=== PATIENT | female | born 1950 | race Caucasian/White ===

== ENCOUNTER 2022-11-17 21:08 | Emergency (ER) | payer OTHER ==
[~2022-11-17] VITALS: Ht 147.3 cm; Wt 95.7 kg
[2022-11-17 21:10] VITALS: BP_SYST 150; PULSE 75; RESP 18; TEMP 99.8; O2SAT 98
[2022-11-17 23:19] LABS: BASOPHILS % (AUTO) 0.6 % (0.0-2.0); EOSINOPHILS # (AUTO) 0.1 K/uL (0.0-0.4); EOSINOPHILS % (AUTO) 1.6 % (0.0-4.0); HEMOGLOBIN 12.9 g/dL (12.0-16.0); LYMPHOCYTES # (AUTO) 1.5 K/uL (1.0-5.5); MEAN CORPUSCULAR HEMOGLOBIN 32 pg (27-31); MEAN CORPUSCULAR HGB CONC 33 % (32-36); MEAN CORPUSCULAR VOLUME 98 fL (79.0-98.0); MONOCYTES # (AUTO) 0.5 K/uL (0.0-1.0); MONOCYTES % (AUTO) 8.3 % (1.7-9.3); NEUTROPHILS # (AUTO) 4.2 K/uL (1.8-7.7); NEUTROPHILS % (AUTO) 65.5 % (40.0-70.0); PLATELET COUNT (AUTO) 124 K/uL (130-430); RED BLOOD CELL COUNT(AUTO) 3.98 MIL/uL (4.2-6.2); RED CELL DISTRIBUTION WIDTH 16.1 % (9.0-15.0); WHITE BLOOD COUNT (AUTO) 6.4 K/uL (4.8-10.8)
[2022-11-17 23:32] LABS: ANION GAP 5 (5-15); CALCIUM 7.9 mg/dL (8.4-11.0); CHLORIDE 110 mmol/L (98-107); CREATININE 0.67 mg/dL (0.55-1.30); GLUCOSE 116 mg/dL (74-106); UREA NITROGEN, BLOOD 6 mg/dL (8-21)
[2022-11-17 23:45] LABS: ALANINE AMINOTRANSFERASE 23 U/L (12-78); ALBUMIN 2.4 g/dL (3.4-4.8); ASPARTATE AMINOTRANSFERASE 45 U/L (10-37); THYROID STIMULATING HORMONE 2.46 uIu/mL (0.34-4.82); TOTAL BILIRUBIN 1.5 mg/dL (0.0-1.0)
[2022-11-18] MEDS ORDERED: AMOX500C2 PO (00:08)
[2022-11-18 00:32] VITALS: BP_SYST 150; PULSE 75; RESP 18; TEMP 99.8; O2SAT 98
== END 2022-11-18 00:32 | disposition home or self-care (01) ==
LOC: SED 21:08
DX: S02.31XA Fracture of orbital floor, right side, initial encounter for closed fracture (principal); S02.40CA Maxillary fracture, right side, initial encounter for closed fracture; S02.40BA Malar fracture, left side, initial encounter for closed fracture; Z79.899 Other long term (current) drug therapy; W01.0XXA Fall on same level from slipping, tripping and stumbling without subsequent striking against object, initial encounter; Y93.89 Activity, other specified; Y92.89 Other specified places as the place of occurrence of the external cause; Y99.8 Other external cause status
CPT/HCPCS: 36415; 70450-TC; 70486-TC; 76376; 80053; 84443; 85025; 99284

== ENCOUNTER 2023-07-18 16:54 | Inpatient (IN) | payer OTHER ==
[~2023-07-18] VITALS: Ht 149.9 cm; Wt 103.9 kg
[~2023-07-18 16:54] MED LIST: AMOX500C2 PO
[2023-07-18 16:55] VITALS: BP_SYST 117; PULSE 73; RESP 18; TEMP 97.7; O2SAT 95
[2023-07-18 17:39] LABS: BILIRUBIN,URINE 1+ (NEGATIVE); BLOOD, URINE NEGATIVE (NEGATIVE); CLARITY/URINE SL CLOUDY (CLEAR); COLOR,URINE YELLOW (YELLOW); GLUCOSE,URINE NEGATIVE (NEGATIVE); KETONES,URINE TRACE (NEGATIVE); LEUKOCYTE ESTERASE ,URINE TRACE (NEGATIVE); NITRITE, URINE NEGATIVE (NEGATIVE); PH,URINE 6.5 (5.0-8.0); PROTEIN URINE NEGATIVE (NEGATIVE)
[2023-07-18 17:40] LABS: BASOPHILS % (AUTO) 0.7 % (0.0-2.0); EOSINOPHILS # (AUTO) 0.5 K/uL (0.0-0.4); EOSINOPHILS % (AUTO) 10.5 % (0.0-4.0); HEMATOCRIT 35.7 % (36-48); LYMPHOCYTES # (AUTO) 1.4 K/uL (1.0-5.5); LYMPHOCYTES % (AUTO) 27.8 % (20.5-51.5); MEAN CORPUSCULAR HEMOGLOBIN 33 pg (27-31); MEAN CORPUSCULAR HGB CONC 34 % (32-36); MEAN CORPUSCULAR VOLUME 98 fL (79.0-98.0); MONOCYTES # (AUTO) 0.6 K/uL (0.0-1.0); MONOCYTES % (AUTO) 12.1 % (1.7-9.3); NEUTROPHILS # (AUTO) 2.5 K/uL (1.8-7.7); NEUTROPHILS % (AUTO) 48.9 % (40.0-70.0); PLATELET COUNT (AUTO) 129 K/uL (130-430); RED BLOOD CELL COUNT(AUTO) 3.66 MIL/uL (4.2-6.2); RED CELL DISTRIBUTION WIDTH 16.3 % (9.0-15.0); WHITE BLOOD COUNT (AUTO) 5.2 K/uL (4.8-10.8)
[2023-07-18 17:46] LABS: UROBILINOGEN,URINE >=8 (0.2-1.0)
[2023-07-18 17:51] LABS: INR 1.3 (0.8-1.2); PROTHROMBIN TIME 13.3 SECS (9.5-12.5)
[2023-07-18 17:52] LABS: BARBITURATE, URINE NEGATIVE (NEG <=200); BENZODIAZEPINE, URINE NEGATIVE (NEG <=150); CANNABINOID, URINE NEGATIVE (NEG <=50); COCAINE, URINE NEGATIVE (NEG <=150); METHAMPHETAMINES SCREEN,URINE NEGATIVE (NEG <=500); OPIATE, URINE NEGATIVE (NEG <=100); PHENCYCLIDINE SCREEN,URINE NEGATIVE (NEG <=25); URINE AMPHETAMINE NEGATIVE (NEG <=500); URINE METHADONE NEGATIVE (NEG <=200); URINE OXYCODONE SCREEN NEGATIVE (NEG <=100)
[2023-07-18 17:52] LABS: ANION GAP 5 (5-15); CALCIUM 8.7 mg/dL (8.4-11.0); CARBON DIOXIDE 27 mmol/L (23-29); CHLORIDE 111 mmol/L (98-107); GLUCOSE 104 mg/dL (74-106); POTASSIUM 4.3 mmol/L (3.5-5.1); SODIUM SERUM 143 mmol/L (136-145); UREA NITROGEN, BLOOD 12 mg/dL (8-21)
[2023-07-18 17:53] LABS: UR TRICYCLIC ANTIDEPRESSANTS NEGATIVE (NEG <=300)
[2023-07-18 18:00] LABS: ALANINE AMINOTRANSFERASE 27 U/L (12-78); ALBUMIN 2.2 g/dL (3.4-4.8); ASPARTATE AMINOTRANSFERASE 76 U/L (10-37); BILIRUBIN,DIRECT 0.5 mg/dL (0.0-0.3); TOTAL BILIRUBIN 1.5 mg/dL (0.0-1.0); TOTAL PROTEIN, SERUM 6.7 g/dL (6.4-8.3)
[2023-07-18 18:09] LABS: BACTERIA,URINE MODERATE /HPF (None Seen); MUCUS,URINE 1+ /LPF (None Seen); RBC,URINE 0-3 /HPF (0-3)
[2023-07-18 18:24] LABS: ALCOHOL, BLOOD < 3 mg/dL (<10)
[2023-07-18] MEDS: cefTRIAXone 1 GM IVPB PREMIX 50 ML IV ONE (19:19)
[2023-07-18] MEDS: NACL 0.9% 1,000 ML IV ONE (19:20)
[2023-07-18] MEDS ORDERED: OXYB10TA30 PO (19:26)
[2023-07-18] MEDS ORDERED: LOSA25TA18 PO (19:26)
[2023-07-18 20:27] LABS: ANION GAP 4 (5-15); CALCIUM 8.6 mg/dL (8.4-11.0); CARBON DIOXIDE 30 mmol/L (23-29); CHLORIDE 111 mmol/L (98-107); CREATININE 0.64 mg/dL (0.55-1.30); GLUCOSE 95 mg/dL (74-106); POTASSIUM 4.2 mmol/L (3.5-5.1); SODIUM SERUM 145 mmol/L (136-145); UREA NITROGEN, BLOOD 12 mg/dL (8-21)
[2023-07-18] MEDS: NACL 0.9% 1,000 ML IV SCH (20:36)
[2023-07-18 21:00] VITALS: BP_SYST 104; BP_SYST 112; BP_SYST 115; PULSE 73; PULSE 86; RESP 20; RESP 23; TEMP 97.5; TEMP 97.8; TEMP 97.9; O2SAT 95; O2SAT 97
[2023-07-18] MEDS ORDERED: MAGNESIUM SULFATE 50 ML IV PRN (23:00)
[2023-07-18] MEDS ORDERED: ONDANSETRON HCL 4 MG/2 ML VIAL IVP PRN (23:00)
[2023-07-18] MEDS ORDERED: NALOXONE HCL 2 MG/2 ML SYR IVP PRN (23:00)
[2023-07-18] MEDS ORDERED: LORazepam 2 MG/ML VIAL IVP PRN (23:00)
[2023-07-18] MEDS ORDERED: MORPHINE 2 MG/ML INJ. SYRINGE IVP PRN (23:00)
[2023-07-18] MEDS ORDERED: MORPHINE 4 MG INJ. 4 MG/ML VIAL IVP PRN (23:00)
[2023-07-18 23:56] LABS: THYROID STIMULATING HORMONE 4.86 uIu/mL (0.34-4.82)
[2023-07-19] VITALS (8 sets, daily range): BP systolic 110–136; PULSE 68–86; RESP 16–20; TEMP 97.1–98.4; O2SAT 96–100
[2023-07-19 00:53] LABS: BARBITURATE, URINE NEGATIVE (NEG <=200); BENZODIAZEPINE, URINE NEGATIVE (NEG <=150); CANNABINOID, URINE NEGATIVE (NEG <=50); COCAINE, URINE NEGATIVE (NEG <=150); METHAMPHETAMINES SCREEN,URINE NEGATIVE (NEG <=500); OPIATE, URINE NEGATIVE (NEG <=100); PHENCYCLIDINE SCREEN,URINE NEGATIVE (NEG <=25); UR TRICYCLIC ANTIDEPRESSANTS NEGATIVE (NEG <=300); URINE AMPHETAMINE NEGATIVE (NEG <=500); URINE METHADONE NEGATIVE (NEG <=200); URINE OXYCODONE SCREEN NEGATIVE (NEG <=100)
[2023-07-19 05:00] LABS: BASOPHILS % (AUTO) 0.9 % (0.0-2.0); EOSINOPHILS # (AUTO) 0.6 K/uL (0.0-0.4); EOSINOPHILS % (AUTO) 11.4 % (0.0-4.0); HEMOGLOBIN 12.1 g/dL (12.0-16.0); LYMPHOCYTES # (AUTO) 1.9 K/uL (1.0-5.5); LYMPHOCYTES % (AUTO) 37.6 % (20.5-51.5); MEAN CORPUSCULAR HEMOGLOBIN 33 pg (27-31); MEAN CORPUSCULAR HGB CONC 34 % (32-36); MEAN CORPUSCULAR VOLUME 97 fL (79.0-98.0); MONOCYTES # (AUTO) 0.5 K/uL (0.0-1.0); MONOCYTES % (AUTO) 10.2 % (1.7-9.3); NEUTROPHILS % (AUTO) 39.9 % (40.0-70.0); PLATELET COUNT (AUTO) 99 K/uL (130-430); RED BLOOD CELL COUNT(AUTO) 3.71 MIL/uL (4.2-6.2); RED CELL DISTRIBUTION WIDTH 16.3 % (9.0-15.0); WHITE BLOOD COUNT (AUTO) 5.1 K/uL (4.8-10.8)
[2023-07-19 05:18] LABS: ALANINE AMINOTRANSFERASE 23 U/L (12-78); ANION GAP 6 (5-15); ASPARTATE AMINOTRANSFERASE 65 U/L (10-37); CALCIUM 8.5 mg/dL (8.4-11.0); CARBON DIOXIDE 26 mmol/L (23-29); CHLORIDE 113 mmol/L (98-107); CREATININE 0.57 mg/dL (0.55-1.30); GLUCOSE 69 mg/dL (74-106); PHOSPHORUS 3.6 mg/dL (2.7-4.5); POTASSIUM 3.9 mmol/L (3.5-5.1); SODIUM SERUM 145 mmol/L (136-145); TOTAL BILIRUBIN 1.7 mg/dL (0.0-1.0); TOTAL PROTEIN, SERUM 6.2 g/dL (6.4-8.3); UREA NITROGEN, BLOOD 10 mg/dL (8-21)
[2023-07-19] MEDS: oxyBUTYnin chloride 5 MG TABLET PO SCH (08:14)
[2023-07-19] MEDS: LOSARTAN POTASSIUM 25 MG TABLET PO SCH (08:14)
[2023-07-19] MEDS: cefTRIAXone 1 GM IVPB PREMIX 50 ML IV SCH (08:43)
[2023-07-19] MEDS ORDERED: cefTRIAXone 1 GM IVPB PREMIX 50 ML IV SCH (09:00)
[2023-07-19] MEDS ORDERED: OXYB15TA19 PO (09:32)
[2023-07-19] MEDS: ENOXAPARIN SODIUM 40 MG/0.4 ML SYRINGE SUBCUT SCH (13:25)
[2023-07-19 15:27] LABS: BASOPHILS # (AUTO) 0.1 K/uL (0.0-0.2); BASOPHILS % (AUTO) 1.2 % (0.0-2.0); EOSINOPHILS # (AUTO) 0.5 K/uL (0.0-0.4); EOSINOPHILS % (AUTO) 9.9 % (0.0-4.0); HEMATOCRIT 33.3 % (36-48); HEMOGLOBIN 11.2 g/dL (12.0-16.0); LYMPHOCYTES # (AUTO) 1.7 K/uL (1.0-5.5); LYMPHOCYTES % (AUTO) 32.5 % (20.5-51.5); MEAN CORPUSCULAR HEMOGLOBIN 33 pg (27-31); MEAN CORPUSCULAR HGB CONC 34 % (32-36); MEAN CORPUSCULAR VOLUME 98 fL (79.0-98.0); MONOCYTES # (AUTO) 0.4 K/uL (0.0-1.0); MONOCYTES % (AUTO) 8.2 % (1.7-9.3); NEUTROPHILS # (AUTO) 2.5 K/uL (1.8-7.7); NEUTROPHILS % (AUTO) 48.2 % (40.0-70.0); PLATELET COUNT (AUTO) 118 K/uL (130-430); RED CELL DISTRIBUTION WIDTH 16.3 % (9.0-15.0); WHITE BLOOD COUNT (AUTO) 5.2 K/uL (4.8-10.8)
[2023-07-19] MEDS: LACTULOSE 20 GM/30 ML UDC PO ONE (17:22)
[2023-07-20 00:24] VITALS: BP_SYST 144; PULSE 70; RESP 17; TEMP 97.4; O2SAT 97
[2023-07-20 04:00] VITALS: BP_SYST 130; PULSE 89; RESP 19; TEMP 97.7; O2SAT 98
[2023-07-20 08:00] VITALS: BP_SYST 119; PULSE 75; RESP 16; TEMP 98.7; O2SAT 98
[2023-07-20] MEDS: LACTULOSE 20 GM/30 ML UDC PO SCH (08:35)
[2023-07-20 09:21] LABS: EOSINOPHILS # (AUTO) 0.5 K/uL (0.0-0.4); EOSINOPHILS % (AUTO) 9.7 % (0.0-4.0); HEMATOCRIT 33.6 % (36-48); HEMOGLOBIN 11.3 g/dL (12.0-16.0); LYMPHOCYTES # (AUTO) 1.5 K/uL (1.0-5.5); LYMPHOCYTES % (AUTO) 31.5 % (20.5-51.5); MEAN CORPUSCULAR HEMOGLOBIN 33 pg (27-31); MEAN CORPUSCULAR HGB CONC 34 % (32-36); MEAN CORPUSCULAR VOLUME 98 fL (79.0-98.0); MONOCYTES # (AUTO) 0.4 K/uL (0.0-1.0); MONOCYTES % (AUTO) 9.3 % (1.7-9.3); NEUTROPHILS # (AUTO) 2.3 K/uL (1.8-7.7); NEUTROPHILS % (AUTO) 48.5 % (40.0-70.0); PLATELET COUNT (AUTO) 112 K/uL (130-430); RED BLOOD CELL COUNT(AUTO) 3.43 MIL/uL (4.2-6.2); RED CELL DISTRIBUTION WIDTH 16.3 % (9.0-15.0); WHITE BLOOD COUNT (AUTO) 4.7 K/uL (4.8-10.8)
[2023-07-20 09:40] LABS: ALANINE AMINOTRANSFERASE 22 U/L (12-78); ALBUMIN 1.8 g/dL (3.4-4.8); ANION GAP 6 (5-15); ASPARTATE AMINOTRANSFERASE 63 U/L (10-37); CALCIUM 7.9 mg/dL (8.4-11.0); CARBON DIOXIDE 24 mmol/L (23-29); CHLORIDE 112 mmol/L (98-107); CREATININE 0.68 mg/dL (0.55-1.30); GLUCOSE 177 mg/dL (74-106); PHOSPHORUS 3.1 mg/dL (2.7-4.5); POTASSIUM 3.4 mmol/L (3.5-5.1); SODIUM SERUM 142 mmol/L (136-145); TOTAL BILIRUBIN 1.5 mg/dL (0.0-1.0); TOTAL PROTEIN, SERUM 5.8 g/dL (6.4-8.3); UREA NITROGEN, BLOOD 8 mg/dL (8-21)
[2023-07-20 11:33] VITALS: BP_SYST 121; PULSE 73; RESP 18; TEMP 98.5; O2SAT 95
[2023-07-20] MEDS: POTASSIUM CHLORIDE 40 MEQ, LIDOCAINE JECT 2% PF 100 MG 50 MG in NS 250 ML IV PRN (11:36)
[2023-07-20] MEDS: oxyBUTYnin chloride 5 MG TABLET PO ONE (16:29)
[2023-07-20 16:51] VITALS: BP_SYST 136; PULSE 70; RESP 18; TEMP 98.8; O2SAT 98
[2023-07-20 19:35] VITALS: O2SAT 99
[2023-07-20] MEDS: oxyBUTYnin chloride 5 MG TABLET PO SCH (20:51)
[2023-07-20] MEDS: CIPROFLOXACIN LACT 400 MG/D5W 200 ML IV SCH (20:51)
[2023-07-21] VITALS (8 sets, daily range): BP systolic 114–150; PULSE 63–81; RESP 16–20; TEMP 96.3–99.6; O2SAT 92–98
[2023-07-21 06:41] LABS: BASOPHILS % (AUTO) 0.7 % (0.0-2.0); EOSINOPHILS # (AUTO) 0.4 K/uL (0.0-0.4); EOSINOPHILS % (AUTO) 7.6 % (0.0-4.0); HEMATOCRIT 34.9 % (36-48); HEMOGLOBIN 11.8 g/dL (12.0-16.0); LYMPHOCYTES # (AUTO) 1.5 K/uL (1.0-5.5); LYMPHOCYTES % (AUTO) 28.6 % (20.5-51.5); MEAN CORPUSCULAR HEMOGLOBIN 33 pg (27-31); MEAN CORPUSCULAR HGB CONC 34 % (32-36); MEAN CORPUSCULAR VOLUME 98 fL (79.0-98.0); MONOCYTES # (AUTO) 0.6 K/uL (0.0-1.0); MONOCYTES % (AUTO) 11.3 % (1.7-9.3); NEUTROPHILS # (AUTO) 2.8 K/uL (1.8-7.7); NEUTROPHILS % (AUTO) 51.8 % (40.0-70.0); PLATELET COUNT (AUTO) 113 K/uL (130-430); RED BLOOD CELL COUNT(AUTO) 3.58 MIL/uL (4.2-6.2); RED CELL DISTRIBUTION WIDTH 16.6 % (9.0-15.0); WHITE BLOOD COUNT (AUTO) 5.4 K/uL (4.8-10.8)
[2023-07-21 06:51] LABS: ALANINE AMINOTRANSFERASE 25 U/L (12-78); ALBUMIN 2.1 g/dL (3.4-4.8); ANION GAP 7 (5-15); ASPARTATE AMINOTRANSFERASE 64 U/L (10-37); CALCIUM 8.1 mg/dL (8.4-11.0); CARBON DIOXIDE 23 mmol/L (23-29); CHLORIDE 112 mmol/L (98-107); CREATININE 0.52 mg/dL (0.55-1.30); GLUCOSE 69 mg/dL (74-106); PHOSPHORUS 3.4 mg/dL (2.7-4.5); POTASSIUM 3.7 mmol/L (3.5-5.1); SODIUM SERUM 142 mmol/L (136-145); TOTAL BILIRUBIN 1.6 mg/dL (0.0-1.0); TOTAL PROTEIN, SERUM 6.3 g/dL (6.4-8.3); UREA NITROGEN, BLOOD 6 mg/dL (8-21)
[2023-07-21] MEDS ORDERED: OXYBUTYNIN CHLORIDE 15 MG PO SCH (09:00)
[2023-07-22] VITALS (7 sets, daily range): BP systolic 103–142; PULSE 67–80; RESP 16–20; TEMP 97.6–99; O2SAT 95–99
[2023-07-22 09:23] LABS: BASOPHILS % (AUTO) 0.4 % (0.0-2.0); EOSINOPHILS # (AUTO) 0.4 K/uL (0.0-0.4); EOSINOPHILS % (AUTO) 7.3 % (0.0-4.0); HEMATOCRIT 34.6 % (36-48); HEMOGLOBIN 11.7 g/dL (12.0-16.0); LYMPHOCYTES # (AUTO) 1.2 K/uL (1.0-5.5); LYMPHOCYTES % (AUTO) 22.9 % (20.5-51.5); MEAN CORPUSCULAR HEMOGLOBIN 33 pg (27-31); MEAN CORPUSCULAR HGB CONC 34 % (32-36); MEAN CORPUSCULAR VOLUME 98 fL (79.0-98.0); MONOCYTES # (AUTO) 0.7 K/uL (0.0-1.0); MONOCYTES % (AUTO) 13.5 % (1.7-9.3); NEUTROPHILS % (AUTO) 55.9 % (40.0-70.0); PLATELET COUNT (AUTO) 110 K/uL (130-430); RED BLOOD CELL COUNT(AUTO) 3.54 MIL/uL (4.2-6.2); RED CELL DISTRIBUTION WIDTH 16.3 % (9.0-15.0); WHITE BLOOD COUNT (AUTO) 5.4 K/uL (4.8-10.8)
[2023-07-22 09:41] LABS: ALANINE AMINOTRANSFERASE 22 U/L (12-78); ALBUMIN 1.9 g/dL (3.4-4.8); ANION GAP 6 (5-15); ASPARTATE AMINOTRANSFERASE 57 U/L (10-37); CARBON DIOXIDE 24 mmol/L (23-29); CHLORIDE 111 mmol/L (98-107); CREATININE 0.51 mg/dL (0.55-1.30); GLUCOSE 81 mg/dL (74-106); POTASSIUM 3.5 mmol/L (3.5-5.1); SODIUM SERUM 141 mmol/L (136-145); TOTAL BILIRUBIN 1.8 mg/dL (0.0-1.0); UREA NITROGEN, BLOOD 7 mg/dL (8-21)
[2023-07-23 00:06] VITALS: BP_SYST 120; PULSE 68; RESP 17; TEMP 97.9; O2SAT 96
[2023-07-23 06:07] LABS: EOSINOPHILS # (AUTO) 0.5 K/uL (0.0-0.4); EOSINOPHILS % (AUTO) 10.7 % (0.0-4.0); HEMATOCRIT 35.6 % (36-48); LYMPHOCYTES # (AUTO) 1.5 K/uL (1.0-5.5); MEAN CORPUSCULAR HEMOGLOBIN 33 pg (27-31); MEAN CORPUSCULAR HGB CONC 34 % (32-36); MEAN CORPUSCULAR VOLUME 98 fL (79.0-98.0); MONOCYTES # (AUTO) 0.6 K/uL (0.0-1.0); MONOCYTES % (AUTO) 13.1 % (1.7-9.3); NEUTROPHILS # (AUTO) 2.2 K/uL (1.8-7.7); NEUTROPHILS % (AUTO) 44.2 % (40.0-70.0); PLATELET COUNT (AUTO) 105 K/uL (130-430); RED BLOOD CELL COUNT(AUTO) 3.64 MIL/uL (4.2-6.2); RED CELL DISTRIBUTION WIDTH 16.4 % (9.0-15.0); WHITE BLOOD COUNT (AUTO) 4.9 K/uL (4.8-10.8)
[2023-07-23 06:33] LABS: ALANINE AMINOTRANSFERASE 22 U/L (12-78); ANION GAP 5 (5-15); ASPARTATE AMINOTRANSFERASE 54 U/L (10-37); CALCIUM 8.1 mg/dL (8.4-11.0); CARBON DIOXIDE 24 mmol/L (23-29); CHLORIDE 109 mmol/L (98-107); CREATININE 0.58 mg/dL (0.55-1.30); GLUCOSE 64 mg/dL (74-106); PHOSPHORUS 3.1 mg/dL (2.7-4.5); POTASSIUM 3.3 mmol/L (3.5-5.1); SODIUM SERUM 138 mmol/L (136-145); TOTAL BILIRUBIN 1.9 mg/dL (0.0-1.0); TOTAL PROTEIN, SERUM 6.2 g/dL (6.4-8.3); UREA NITROGEN, BLOOD 8 mg/dL (8-21)
[2023-07-23 08:00] VITALS: BP_SYST 122; PULSE 77; RESP 18; TEMP 97.8; O2SAT 97
[2023-07-23] MEDS: RIFAXIMIN 550 MG TABLET PO SCH (09:24)
[2023-07-23 11:14] VITALS: BP_SYST 107; PULSE 73; RESP 16; TEMP 97.8; O2SAT 96
[2023-07-23] MEDS ORDERED: RIFA550T5 PO (11:42)
[2023-07-23] MEDS ORDERED: Lactulose PO (11:42)
[2023-07-23] MEDS ORDERED: [UNRECOGNIZED DRUG - CODE] IV (11:42)
[2023-07-23 15:02] VITALS: BP_SYST 122; PULSE 67; RESP 16; TEMP 98.5; O2SAT 96
[2023-07-23 19:49] VITALS: BP_SYST 119; PULSE 72; RESP 18; TEMP 98.4; O2SAT 96
[2023-07-23 19:50] VITALS: BP_SYST 119; PULSE 72; RESP 18; TEMP 98.4; O2SAT 96
== END 2023-07-23 20:15 | DRG 441 ==
LOC: SED 16:54 → STU 19:21 → SMU 07-21 12:37
DX: K76.82 Hepatic encephalopathy (principal); E43 Unspecified severe protein-calorie malnutrition; G93.41 Metabolic encephalopathy; N39.0 Urinary tract infection, site not specified; Z68.42 Body mass index [BMI] 45.0-49.9, adult; K74.60 Unspecified cirrhosis of liver; K75.81 Nonalcoholic steatohepatitis (NASH); I12.9 Hypertensive chronic kidney disease with stage 1 through stage 4 chronic kidney disease, or unspecified chronic kidney disease; N18.9 Chronic kidney disease, unspecified; D63.1 Anemia in chronic kidney disease; E86.0 Dehydration; E87.6 Hypokalemia; Z79.899 Other long term (current) drug therapy
CPT/HCPCS: 36415; 70450-TC; 71045; 76700; 76705; 76856; 80048; 80053; 80076; 80307; 81000; 81001; 81015; 82140; 83037; 83605; 83735; 83880; 84100; 84439; 84443; 84484; 85025; 85610; 85730; 87040; 87086; 93005; 93306; 96365; 97110-GP; 97112-GP; 97116-GP; 97530-GP; 99285; G0378; G0482; J0696; J0744; J1650; J3480; J7050